=== PATIENT | female | born 1955 | race Caucasian/White ===

== ENCOUNTER 2020-03-12 11:34 | Inpatient (IN) | payer OTHER ==
[~2020-03-12] VITALS: Ht 152.4 cm; Wt 69.9 kg
[2020-03-12] VITALS (13 sets, daily range): BP systolic 105–154; BP diastolic 58–95
[2020-03-12] MEDS ORDERED: PRINIVIL10 MG PO (11:57)
[2020-03-12 12:01] LABS: ABSOLUTE NEUTROPHILS 8.3 thou/uL (1.4-8.2); BASOPHILS 1.1 % (0.0-2.0); EOSINOPHILS 0.3 % (0.0-3.0); HEMATOCRIT 43.1 % (37.0-47.0); HEMOGLOBIN 14.6 gm/dL (12.0-15.0); LYMPHOCYTES 18.2 % (24.0-44.0); MCH 31.1 pg (26.0-34.0); MCHC 33.9 g/dL (28.0-37.0); MCV 91.8 fL (80.0-100.0); MONOCYTES 7.8 % (1.0-8.0); PLATELET COUNT 276 thou/uL (150-400); POLYS 72.6 % (36.0-66.0); RDW 13.5 % (10.5-14.5); WBC 11.4 thou/uL (4.0-11.0)
[2020-03-12 12:07] LABS: CALCIUM 9.1 mg/dL (8.5-10.1); CREATININE 1.3 mg/dL (0.6-1.0); POTASSIUM 4.1 mmol/L (3.5-5.1)
[2020-03-12 12:17] LABS: TROPONIN-I 13.96 ng/mL (<0.06)
--- NOTE | 2020-03-12 12:30 | NUR ---
TPA TO BE GIVEN PER MILL ORDER SCHEDULER. RISKS AND BENEFITS DISCUSSED WITH PATIENT BY DOCTOR. PATIENT DENIES ANY QUESTIONS.
[2020-03-12 13:48] LABS: CHOLESTEROL 252 mg/dL (<200); HDL CHOLESTEROL 73 mg/dL (>40); LDL CHOLESTEROL 148 mg/dL (<100); TC:HDL 3.5 Ratio (Not establshd); TRIGLYCERIDE 155 mg/dL (<150); VLDL 31 mg/dL (<40)
[2020-03-12 14:46] LABS: PROTIME 9.7 Seconds (9.3-11.4)
[2020-03-12 15:19] LABS: FOLIC ACID 13.1 ng/mL (8.6-58.9); TSH 1.365 uIU/mL (0.358-3.740)
--- NOTE | 2020-03-12 15:41 | EKG ---
[facility] [place] [address] ELECTROCARDIOGRAM REPORT Name: TALI BELLA Room #: 249-P ADM IN M.R.#: [id number] Admission: 03/12/20 Attend Phys: Justin Mclaughlin MD Discharge: Date of : 53 Report #: [id number] THIS REPORT FOR: cc: Matthew Zambrano David J. DO Couchonnal, Luis F. MD ~ THIS REPORT FOR: //name// [facility] ED Test Date: 2020-03-12 Test Time: 11:40:01 Pat Name: TALI BELLA Department: Room: 249 Gender: F Automatic Lathe Setter: IMTZI : 1955 Requested By: Jorge Zendejas Order Number: [id number] MD: Elias Hernandez Measurements Intervals [place] Rate: 80 P: -7 AR: 132 QRS: 54 QRSD: 86 T: 71 QT: 349 QTc: 403 Interpretive Statements Sinus rhythm Lateral infarct, acute (LAD) Anteroseptal infarct, age indeterminate No previous ECG available for comparison Electronically Signed On 03-12-2020 15:41:36 CDT by Elias Hernandez [email or web address] <ELECTRONICALLY SIGNED> By: Elias Hernandez MD 03/12/20 1541 1140 1140 Elias Hernandez MD /EPI
--- NOTE | 2020-03-12 15:42 | EKG ---
[facility] [place] [address] ELECTROCARDIOGRAM REPORT Name: TALI BELLA Room #: 249-P ADM IN M.R.#: [id number] Admission: 03/12/20 Attend Phys: Justin Mclaughlin MD Discharge: Date of : 53 Report #: [id number] THIS REPORT FOR: cc: Matthew Zambrano David J. DO Couchonnal, Luis F. MD ~ THIS REPORT FOR: //name// [facility] ED Test Date: 2020-03-12 Test Time: 14:39:40 Pat Name: TALI BELLA Department: Room: 249 Gender: F Towel Folder: NEHEMIAH MOBLEY : 1955 Requested By: Jorge Zendejas Order Number: [id number] MD: Elias Hernandez Measurements Intervals [place] Rate: 73 P: 8 TN: 127 QRS: 77 QRSD: 102 T: 62 QT: 397 QTc: 438 Interpretive Statements Sinus rhythm Lateral infarct, acute (LAD) Anteroseptal infarct, age indeterminate Compared to ECG 03/12/2020 11:40:01 No significant changes Electronically Signed On 03-12-2020 15:42:16 CDT by Elias Hernandez [email or web address] <ELECTRONICALLY SIGNED> By: Elias Hernandez MD 03/12/20 1542 1439 1439 Elias Hernandez MD /EPI
--- NOTE | 2020-03-12 16:47 | NUR ---
PT ARRIVED AT 1515 VIA STRETCHER FROM ER. PT WAS ABLE TO MOVE SELF FROM STRETCHER TO BED. PT HOOKED UP TO SUPERVISOR PRODUCTION DEPARTMENT WITH BLOOD PRESSURE MONITORING AND SPO2 MONITORING. PT STARTED ON IV NS PER ORDER. SEE MAR. MEDICATIONS REQUESTED FROM PHARMACY ORDERED. PT BEGAN HAVING CHEST PAIN, NITRO SUBLINGUAL GIVEN X2. PT STARTED ON 2L NC FOR SPO2 OF 88%. PT'S SON ARRIVED AND IS IN ROOM WITH PT. PT STATES SHE WILL DECIDE IN AM IF SHE WANTS TO HAVE CATH OR NOT. GI ROUNDED ON PT AND NEW ORDERS WRITTEN. CARDIOLOGY OXYGEN EQUIPMENT AIDE CALLED ABOUT CHEST PAIN, NEW ORDERS WILL BE PLACED IN COMPUTER FOR NEW MEDICATIONS PER CARDIOLOGY. PT'S SON GIVEN PRIVACY CODE AND VISITING HOURS INFORMATION. RN VERIFIED WITH SON THAT WE HAVE CORRECT PHONE NUMBER HE IS PT'S ONLY CONTACT. AWAITING NEW ORDERS AND WILL IMPLEMENT SOON THEY ARE IN COMPUTER AND VERIFIED/AVAILABLE BY PHARMACY.
[2020-03-12 16:58] LABS: HEMATOCRIT 41.8 % (37.0-47.0); HEMOGLOBIN 13.9 gm/dL (12.0-15.0); MCHC 33.2 g/dL (28.0-37.0); MCV 93.2 fL (80.0-100.0); RBC 4.48 mil/uL (4.20-5.00); RDW 13.5 % (10.5-14.5); WBC 11.6 thou/uL (4.0-11.0)
--- NOTE | 2020-03-12 20:09 | NUR ---
SPOKE WITH PICC RNANTHONY, PICC IS OKAY TO USE.
--- NOTE | 2020-03-12 22:50 | NUR ---
VAT CONSULTED FOR A PICC FOR MULITPLE MEDS IN ICU. 5FRTLPICC PLACED RUABRACHIAL WITH PT HAVING EXTREME ANXIETY. TIP AT THE CAJ. PLEASE SEE NI FOR DETAILS
[2020-03-13] VITALS (32 sets, daily range): BP systolic 118–148; BP diastolic 60–97
--- NOTE | 2020-03-13 03:19 | NUR ---
CHEST PAIN REMAINED STABLE OVER NOC. PT RATED PAIN AT 2/10. PT RESTED WELL FOR MOST OF THE NOC, NO NEW CONCERNS STATED. PT IS STABLE ON NITRO HEPARIN AND PROTONIX GTT. WILL CONTINUE TO CLOSELY MONITOR
[2020-03-13 06:14] LABS: ABSOLUTE NEUTROPHILS 7.1 thou/uL (1.4-8.2); BASOPHILS 0.4 % (0.0-2.0); EOSINOPHILS 0.1 % (0.0-3.0); HEMATOCRIT 37.4 % (37.0-47.0); HEMOGLOBIN 12.8 gm/dL (12.0-15.0); MCH 32.1 pg (26.0-34.0); MCHC 34.2 g/dL (28.0-37.0); MCV 93.7 fL (80.0-100.0); MONOCYTES 9.1 % (1.0-8.0); PLATELET COUNT 220 thou/uL (150-400); POLYS 75.4 % (36.0-66.0); RBC 3.99 mil/uL (4.20-5.00); RDW 13.6 % (10.5-14.5); WBC 9.4 thou/uL (4.0-11.0)
[2020-03-13 06:40] LABS: CALCIUM 8.3 mg/dL (8.5-10.1); MAGNESIUM 1.8 mg/dL (1.8-2.4); POTASSIUM 3.9 mmol/L (3.5-5.1)
--- NOTE | 2020-03-13 07:56 | EKG ---
[facility] [place] [address] ELECTROCARDIOGRAM REPORT Name: TALI BELLA Room #: 249-P ADM IN M.R.#: [id number] Admission: 03/12/20 Attend Phys: Justin Mclaughlin MD Discharge: Date of : 53 Report #: [id number] THIS REPORT FOR: cc: Matthew Zambrano David J. DO Lundgren, Craig H. MD [facility] ~ THIS REPORT FOR: //name// [facility] Test Date: 2020-03-13 Test Time: 07:30:46 Pat Name: TALI BELLA Department: Room: 249 P Gender: F Customer Relations Assistant: IBIS : 1955 Requested By: Gauri Berry Order Number: [id number] MD: Balta Ceron Measurements Intervals [place] Rate: 82 P: 16 VA: 124 QRS: 89 QRSD: 80 T: 1 QT: 370 QTc: 432 Interpretive Statements Sinus rhythm Lateral infarct, acute (LAD) Poor R wave progression Compared to ECG 03/12/2020 14:39:[address] segment elevation is less pronounced Electronically Signed On 03-13-2020 7:56:27 CDT by Balta Ceron [email or web address] <ELECTRONICALLY SIGNED> By: Balta Ceron MD, FACC 03/13/20 0756 9 9 Balta Ceron MD, FACC /EPI
--- NOTE | 2020-03-13 08:09 | NUR ---
pt very tearful this morning, states she is just a sad old lady, she says she just wants to go home and that she will have this heart cath done so that she can go home but she wants it done now, not at 4pm. told her that i would talk to the ux engineer when she came around. she states she is scared as she had a friend's recently from a heart cath. she states if she didn't know this she wouldn't have had any issues having the cath done as her mom had had one before. she states that she sees her friend posting on fb all the time about how lonely she is now and it upsets her. asked her if she had someone that could come up to be with her. she said she only has two people in the area, her son and her boyfriend, and that both of them have to work today. pt states she is just hungry and wants some coffee. ux engineer from cardiology here to see pt. she spoke with her and cath was agreed upon. ux engineer said pt will be second today. troponin drawn, metoprolol given and echo at bedside now.
--- NOTE | 2020-03-13 08:53 | 2DMMODE ---
[facility] [place] [address] 2 D/M-MODE ECHOCARDIOGRAM Name: TALI BELLA Room #: 249-P ADM IN M.R.#: [id number] Admission: 03/12/20 Attend Phys: Justin Mclaughlin MD Discharge: Date of : 53 Report #: [id number] THIS REPORT FOR: cc: Matthew Zambrano David J. DO Lundgren, Craig H. MD [facility] ~ APPROVED REPORT Study performed: 03/13/2020 08:06:26 EXAM: Comprehensive 2D, Doppler, and color-flow Echocardiogram Patient Location: ICU Room #: 249 Status: routine BSA: 1.67 HR: 81 bpm BP: 135/89 mmHg Rhythm: NSR Indications STEMI. Hx: HTN, HLP, tobacco. 2D Dimensions RVDd: 33.81 mm IVSd: 10.81 (7-11mm) LVOT Diam: 18.19 (18-24mm) LVDd: 44.94 mm PWd: 11.32 (7-11mm) LVDs: 26.47 (25-40mm) Aortic Root: 28.67 mm Volumes Left Atrial Volume (Systole) Single Plane 4CH: 32.03 mL Single Plane 2CH: 33.73 mL LA ESV Index: 22.00 mL/m2 Aortic Valve AoV Peak Ron.: 1.34 m/s AO Peak Gr.: 7.13 mmHg LVOT Max P.31 mmHg LVOT Max V: 1.35 m/s SILVESTRE Vmax: 2.63 cm2 Mitral Valve E/A Ratio: 0.8 MV Decel. Time: 175.05 ms [facility] [address] [place] [address] 2 D/M-MODE ECHOCARDIOGRAM Name: TALI BELLA Room #: 249-P [facility]#: [id number] Admission: 03/12/20 Attend Phys: Justin Mclaughlin, Discharge: Date of : 53 Report #: [id number] MV E Max Ron.: 0.87 m/s MV A Ron.: 1.04 m/s MV PHT: 50.77 ms IVRT: 86.51 ms Pulmonary Valve PV Peak Ron.: 1.18 m/s PV Peak Gr.: 5.52 mmHg Pulmonary Vein P Vein S: 0.70 m/s P Vein D: 0.51 m/s P Vein S/D Ratio: 1.37 Tricuspid Valve TR Peak Orn.: 2.81 m/s RAP Estimate: 10.00 mmHg TR Peak Gr.: 32.00 mmHg PA Pressure: 42.00 mmHg Left Ventricle The left ventricle is normal size. There is normal left ventricular wall thickness. Left ventricular systolic function is mildly decreased. LVEF is 45%. Distal anteroapical hypokinesis. Probable false tendon near the apex Mild diastolic dysfunction Right Ventricle The right ventricle is normal size. The right ventricular systolic function is normal. Atria The left atrium size is normal. The right atrium size is normal. Aortic Valve The aortic valve is normal in structure. No aortic regurgitation is present. There is no aortic valvular stenosis. Mitral Valve The mitral valve is normal in structure. Trace mitral regurgitation. No evidence of mitral valve stenosis. Tricuspid Valve The tricuspid valve is normal in structure. Trace tricuspid regurgitation. Estimated PAP is 40-45mmHg. Pulmonic Valve Pulmonic valve is not well visualized. There is no pulmonic valvular [facility] [address] [place] [address] 2 D/M-MODE ECHOCARDIOGRAM Name: TALI BELLA Room #: 249-P ADM IN .R.#: [id number] Admission: 03/12/20 Attend Phys: Justin Mclaughlin, Discharge: Date of : 53 Report #: [id number] regurgitation. Great Vessels The aortic root is normal in size. Ascending aorta is not well visualized. IVC is dilated and collapses <50% with inspiration. Pericardium There is no pericardial effusion. <Conclusion> Left ventricular systolic function is mildly decreased. LVEF is 45%. Distal anteroapical hypokinesis. Probable false tendon near the apex Mild diastolic dysfunction The aortic valve is normal in structure. No aortic regurgitation or stenosis The mitral valve is normal in structure. Trace mitral regurgitation. Trace tricuspid regurgitation. Estimated pulmonary artery pressure of 40-45mmHg. There is no pericardial effusion. <ELECTRONICALLY SIGNED> By: Balta Ceron MD, [facility] 03/13/20852 2 2 Balta Ceron MD, [facility] /INF
--- NOTE | 2020-03-13 10:38 | NUR ---
PT RETURNED FROM FABRICATOR FOAM RUBBER AT 1030. GROIN SITE WNL. PT VERY AGITATED, C/O HEADACHE. PT BENDING LEGS AND TRYING TO SIT UP. EXPLAINED THAT PT NEEDED TO LAY FLAT AND KEEP LEG STRAIGHT UNTIL BED REST IS COMPLETED. PT COMPLAINING THAT SHE WANTS TO SIT UP, TEARFUL. SON AT BEDSIDE.
--- NOTE | 2020-03-13 14:11 | NUR ---
chart review. unable to visit with vandana mccoy. cm visited with her son josh via phone call, intro to cm and transition of care ie hh or dme. " she lives with me, rent home. 1 main floor, not even a basement. she is independent. no medical equip, manage own medication and drives. she my only family everyone else has "/josh. active listening and support during visit. will cont following as needed for dc needs.
--- NOTE | 2020-03-13 15:06 | NUR ---
PT WAS TRANSFERRED TO ROOM 213 VIA WHEELCHAIR. PT GROIN SITE WNL. FRANCINE VELARDE AT BEDSIDE TO RECEIVE
--- NOTE | 2020-03-13 18:46 | NUR ---
ASSUMED CARE OF PT AT FROM ICU AT APPROX 1445. ASSESSMENTS CHARTED. MEDS GIVEN PER SEP. PT A&OX4 BUT ANXIOUS AND AGITATED TIMES. R GROIN SITE REMAINS SOFT, NO HEMATOMA OR BRUISING. WILL CONTINUE TO MONITOR AND FOLLOW POC.
--- NOTE | 2020-03-13 20:00 | NUR ---
PT IS ALERT AND ORIENTED X4. REPORTS PAIN A 7 IN HER NECK AND BACK. AND SAYS TO BE WE ARE DOING FUCK FOR HER SO WHY BOTHER. PAIN MEDS AND ATIVAN GIVEN TO HELP HER WITH PAIN AND ANXIETY CLEARLY NOTED. PT APPEARS AGITATED WITH STAFF IN ANY REGARDS TO ASSISTING HER TO THE BATHROOM OR PT CARE NEEDS. SHE CONTINUES TO CUSS AND SWEAR AND BE VERBALLY ABUSIVE TOWARDS NURSING ASSSITANT AND RN. CALL LIGHT WITHIN REACH IF NEEDS ASISSTANCE WITH CARE.
[2020-03-14 00:01] VITALS: BP 106/69
--- NOTE | 2020-03-14 01:50 | NUR ---
PT WANTING TO LEAVE AMA. DRESSED IN HER CLOTHES. SAYS THE PILLOWS ARE HARD. FOOD IS AWFULL AND I CAN GO HOME. I INFORMED HER NO NOT TONIGHT THAT IS NOT MEDICALLY ADVISED AT THIS POST TIME SHE HAD A CATH PROCEDURE. SHES STATES I DONT GIVEN A FUCK! IM CALLING THE POLICE ON YOU. NOTIFIED THALIA TRANSMISSION MECHANIC TO COME TALK WITH PT DUE TO HER NOT MAKING RATIONALE DESCTIONS IN REGARDS TO HEALTH CARE. INFORM HER SHE WOULD ASSUME THE BILL AND ANYTHING THAT COULD POSSIBLY HAPPEN TO HER SINCE WE WONT BE DISCHARGING HER IN THIS CONDITION.
[2020-03-14 03:55] VITALS: BP 106/58
[2020-03-14 08:00] VITALS: BP 115/72
[2020-03-14] MEDS ORDERED: METOPROLOL SUCC25 M1 PO (09:05)
[2020-03-14] MEDS ORDERED: EFFIENT10 MG PO (09:05)
[2020-03-14] MEDS ORDERED: ASPIRIN325 PO (09:05)
[2020-03-14] MEDS ORDERED: LIPITOR40 MG PO (09:05)
[2020-03-14] MEDS ORDERED: LISINOPRIL2.5 MG PO (09:07)
[2020-03-14 12:00] VITALS: BP 115/72
[2020-03-14 12:31] VITALS: BP 115/72
[2020-03-14 12:31] LABS: HEMATOCRIT 32.2 % (37.0-47.0)
[2020-03-14] MEDS ORDERED: PROTONIX40 M1 PO (12:55)
--- NOTE | 2020-03-14 13:43 | NUR ---
PT CARE ASSUMED AT 0700. ASSESSMENTS CHARTED. MEDICATION CHARTED. NO HEMATEMESIS. NO BLOODY STOOLS. PT IS AGITATED AND IMPULSIVE. PT WANTS TO GO HOME. PT LEFT DESPITE 'S REQUEST TO SPEAK WITH HER. PICC RT D/C'D. TELEMETRY D/C'D. PT INSISTED ON GOING HOME.
--- NOTE | 2020-03-29 13:10 | CATHLAB ---
[facility] [place] [address] [place] [address] INVASIVE PROCEDURE REPORT Name: TALI BELLA Room #: 213-P DIS IN M.R.#: [id number] Admission: 03/12/20 Attend Phys: Justin Mclaughlin MD Discharge: 03/14/20 Date of : 53 Report #: [id number] THIS REPORT FOR: cc: Matthew Zambrano David J. DO Lammoglia, Francisco J. MD ~ APPROVED REPORT Study performed: 03/13/2020 08:53:39 Patient Details Patient Status: Out-Patient Room #: The patient is a 65 year-old female Event Personnel Edi Melendez Laborer Wood Preserving Plant, Gemma Pearson RN RN, Bindu Painting RTR, PRATEEK Scrub, Christy De La O RTR Scrub, Wisam Hardwick RTR Monitor, Enid Rutherford Senior Policy Associate Procedures Performed Art Access - R femoral artery* Coronary Angiography Only [id number] CRISANG 15406 Initial Mod Sed Same Phys/QHP Gr5y 812439 07671 Mod Sed Same Phys/QHP Ea [id number] Hemostasis w/ Mynx EMMANUEL Place w/wo Plasty Single DIAG 624845, supervision of conscious sedation Indication Non-STEMI , Chest pain Procedure Narrative The Right Groin^ was infiltrated with 1% Lidocaine subcutaneous anesthesia. A PINNACLE 6FR Sheath #[id number] sheath was inserted into the RFA 6 FR^. Coronary angiography was performed using coronary diagnostic catheters. The right coronary system was accessed and visualized with a 6FR JR 4 #[id number] catheter. The left coronary system was accessed and visualized with a LAUNCHER 6FR JL4 #[id number] catheter. Closure device was deployed with a 6 Fr MYNXGRIP 6/7F #[id number]. The patient tolerated the procedure well and there were no complications associated with the procedure. There was no hematoma. Intraoperative Conscious Sedation Sedation start time: 926 Case end Time: 1010 Versed 4 mg [facility] [address] [place] [address] INVASIVE PROCEDURE REPORT Name: TALI BELLA Room #: 213-P [facility] IN [facility].#: [id number] Admission: 03/12/20 Attend Phys: Justin Mclaughlin, Discharge: 03/14/20 Date of : 53 Report #: [id number] Fluoro Time: 8.41 minutes Dose: DAP 4451.80 cGycm2 652 mGy Contrast Type and Amount: Omnipaque 142 ml Coronary Angiography The patient's coronary anatomy is right dominant. Diagnostic Cath Left Main Arrhythmias normal origin caliber bifurcates left anterior descending left circumflex. Is short in length and may be nonexistent with a co-ostium of the LAD and left circumflex no high-grade lesions are noted LAD Moderate caliber type II vessel which courses in the anterior interventricular sulcus giving rise to septal diagonal branches. The LAD proper has mild to moderate irregularities noted. First diagonal is totally occluded at its origin with ANTHONY 0 to ANTHONY I flow. Diagonal 1 Small caliber vessel occluded proximally with minimal antegrade flow Circumflex Moderate to large caliber vessel proceeds in the AV groove giving rise to a small first marginal branch and then continues with laterally and posteriorly impressive bifurcating marginal branch which is moderate in caliber. Luminal irregularities are noted. The circumflex and terminates a small posterior wall branch. Right Coronary Moderate to large caliber vessel which in its proximal course is an eccentric lesion of approximately 50 to 60%. Does not appear to be flow-limiting. Then continues posteriorly the crux of the heart giving rise to a posterior descending artery R PDA Small caliber vessel without high-grade lesions Left Ventriculography Left Ventriculography was not performed. Hemodynamics The aortic pressure is 132/75 mmHg with a mean of 74 mmHg. PCI Technique Left coronary ostium was engaged with a standard guide. Utilizing a 0.014 wire that was advanced through the occluded diagonal branch and distally. Subsequent to this a balloon was positioned across the total occlusion and dilated per standard protocol and noted in chart. Antegrade flow was reestablished and the vessel appeared to be small in caliber but at least 2 mm in diameter. A EMMANUEL stent was then positioned across the region of total occlusion and deployed per standard protocol. Post deployment antegrade flow was present no [facility] [address] [place] [address] INVASIVE PROCEDURE REPORT Name: TALI BELLA Room #: 213-P [facility] IN M.R.#: [id number] Admission: 03/12/20 Attend Phys: Justin Mclaughlin, Discharge: 03/14/20 Date of : 53 Report #: [id number] loss of side branches embolization were noted. Patient tolerated procedure well there were no complications PCI Technique Lesion Percutaneous coronary intervention was performed on the first diagnonal branch segment. A LAUNCHER 6FR JL4 #[id number] Guide Catheter was used to engage the ostium. A Luge Wire (J) .014 X 182CM #[id number] Interventional Guidewire was used to cross the lesion. BALLOON DILATION A Balloon catheter Sprinter OTW 2.0 x 12 #[id number] was inserted and inflated up to 8.00atm for 21seconds. Additional Inflation: 8.00atm for 71seconds. STENT DEPLOYMENT A drug-eluting stent RESOLUTE ROMULO OTW 2.0 X 15 #[id number] was inserted and inflated up to 12.00atm for 22seconds. Additional Inflation: 16.00atm for 15seconds. Conclusion 1. Coronary disease moderate two-vessel with high-grade totally occluded first diagonal branch of the LAD 2. Abnormal hemodynamics elevated low ventricular end-diastolic pressures 3. Successful revascularization and stenting of the first diagonal branch with a 2.0 mm EMMANUEL stent as noted in the procedure log Recommendations Cardiac Risk Reduction Program 1. Dual antiplatelet therapy with aspirin and Prasugrel <ELECTRONICALLY SIGNED> By: Edi Melendez MD 03/29/20 1309 1309 08 Edi Melendez MD /INF
== END 2020-03-14 13:00 | disposition home or self-care (01) | DRG 246 ==
LOC: EDBD 11:34 → ER 11:34 → ICU 15:23 → EROBS 15:23 → ICU 15:24 → 2N 03-13 14:36
PROVIDERS: Emergency Medicine; Internal Medicine; Nurse Practitioner; Nurse Practitioner Adult Health; ADMIT Internal Medicine; ATTEND Internal Medicine
DX: I21.3 ST elevation (STEMI) myocardial infarction of unspecified site (principal); N17.0 Acute kidney failure with tubular necrosis; K92.0 Hematemesis; F41.9 Anxiety disorder, unspecified; E53.8 Deficiency of other specified B group vitamins; I10 Essential (primary) hypertension; I25.119 Atherosclerotic heart disease of native coronary artery with unspecified angina pectoris; F17.210 Nicotine dependence, cigarettes, uncomplicated; E78.5 Hyperlipidemia, unspecified; Z91.19 Patient's noncompliance with other medical treatment and regimen; Z71.6 Tobacco abuse counseling; Z82.49 Family history of ischemic heart disease and other diseases of the circulatory system; Z95.2 Presence of prosthetic heart valve; Z79.899 Other long term (current) drug therapy
CPT/HCPCS: 10078; 10081; 27000

== ENCOUNTER → 2021-03-13 | Outpatient (CLI) | payer OTHER ==
[~2021-03-13] MED LIST: ASPIRIN325 PO; EFFIENT10 MG PO; LIPITOR40 MG PO; LISINOPRIL2.5 MG PO; METOPROLOL SUCC25 M1 PO; PRINIVIL10 MG PO; PROTONIX40 M1 PO
== END ==
LOC: SJCVC 09:47
PROVIDERS: ATTEND Internal Medicine
DX: E78.5 Hyperlipidemia, unspecified (principal); Z79.899 Other long term (current) drug therapy